=== PATIENT | female | born 1955 | race Caucasian/White ===

== ENCOUNTER → 2016-09-08 | Outpatient (CLI) | payer OTHER ==
--- NOTE | 2016-09-08 18:10 | DX ---
Left knee, 3 views History: Pain starting 2 days ago with no trauma. Comparison: None available. Findings: Mild to moderate osteoarthritis is present in the medial compartment with mild joint space narrowing and moderate osteophyte formation. Mild osteoarthritis is present in the patellofemoral art iculation without significant joint space narrowing. Osteopenia is present. A small joint effusion is noted. Atherosclerosis is present with a stent in the proximal calf. Impression: 1. Mild to moderate osteoarthritis in the medial compartment. 2. Atherosclerosis.
== END ==
LOC: BRMIMAGING 16:11
PROVIDERS: ATTEND Physician Assistant Medical
DX: M25.562 Pain in left knee (principal); M17.12 Unilateral primary osteoarthritis, left knee
CPT/HCPCS: 73562-PO